=== PATIENT | male | born 1965 | race Caucasian/White ===

== ENCOUNTER 2024-11-23 17:16 | Inpatient (IN) | payer OTHER ==
[2024-11-23 22:13] VITALS: BMI 22.1
[2024-11-24] MEDS ORDERED: Ondansetron PF 4 MG/2 ML Vial IVP PRN (00:30)
[2024-11-24] MEDS ORDERED: Acetaminophen 325 MG TAB PO PRN (00:30)
[2024-11-24] MEDS ORDERED: Acetaminophen 650 MG Suppository PR PRN (00:30)
[2024-11-24] MEDS ORDERED: traMADol HCl 50 MG TAB PO PRN ×2 (00:30)
[2024-11-24] MEDS ORDERED: Ondansetron ODT 4 MG TAB PO PRN (00:30)
[2024-11-24] MEDS ORDERED: Dextrose 50% Abboject 50 ML SYRINGE SLOW IVP PRN (00:35)
[2024-11-24] MEDS ORDERED: Insulin Lispro 100 UNIT/ML 10 ML VIAL SC PRN (00:35)
[2024-11-24] MEDS ORDERED: Glucagon 1 MG/ML KIT IM PRN (00:35)
[2024-11-24] MEDS ORDERED: Dextrose 5% in Water 1,000 ML IV PRN (00:35)
[2024-11-24] MEDS: cefTRIAXone\\ROCEPHIN 2 GM in Sodium Chloride 0.9% 100 ML IVPB SCH (00:58)
[2024-11-24 06:31] LABS: #Basophils 0.05 10x3/uL (0.0-0.2); %Basophils 0.6 % (0.0-1.0); %Eosinophils 5.4 % (0.0-10.0); %Lymphocytes 16.6 % (21.0-51.0); %Monocytes 10.2 % (0.0-10.0); %Neutrophils 66.8 % (42.0-75.0); Hematocrit 43.8 % (42.0-52.0); Hemoglobin 14.6 g/dL (14.0-18.0); Mean Corpuscular HGB CONC 33.3 g/dL (32.0-36.0); Mean Corpuscular Hemoglobin 31.4 pg (27.0-31.0); Mean Corpuscular Volume 94.2 fL (78.0-98.0); Mean Platelet Volume 10.2 fL (7.4-10.4); Platelet Count 165 10x3/uL (130-400); RBC Distribution Width 12.9 % (11.5-14.5); Red Blood Cell (RBC) Count 4.65 mill/uL (4.70-6.10)
[2024-11-24 06:49] LABS: ALT (SGPT) 342 U/L (8-55); AST (SGOT) 342 U/L (5-34); Alkaline Phosphatase 142 U/L (40-110); Anion Gap 14 mmol/L (10-20); BUN (Urea Nitrogen) 13 mg/dL (8.4-25.7); Calc. Creatinine Clearance 119 mL/min (70-130); Calcium 8.8 mg/dL (7.8-10.44); Carbon Dioxide 20 mmol/L (22-29); Chloride 109 mmol/L (98-107); Estimated GFR 106; Globulin 3.7 g/dL (2.4-3.5); Glucose 125 mg/dL (70-105); Potassium 4.3 mmol/L (3.5-5.1); Protein, Total 6.7 g/dL (6.0-8.3); Sodium 139 mmol/L (136-145)
[2024-11-24 06:54] LABS: Vancomycin, Random 4.9 ug/mL (See Comment)
[2024-11-24] MEDS: Empagliflozin 25 MG TAB PO SCH (08:42)
[2024-11-24] MEDS: Lisinopril 20 MG TAB PO SCH (08:42)
[2024-11-24] MEDS: Enoxaparin 40 MG (0.4 mL) SYRINGE SC SCH (08:42)
[2024-11-24] MEDS ORDERED: Vancomycin 1 GM in Sodium Chloride 0.9% 250 ML 250 ML IVPB SCH (09:00)
[2024-11-24] MEDS: Vancomycin (BATCH) 1.5 GM in Premix 1 BAG IVPB SCH (10:02)
[2024-11-24 11:25] LABS: Hep C Index 13.57 S/CO (0-0.79)
[2024-11-24 11:59] LABS: HBsAg Index 0.57 S/CO (0-0.99); Hep A IgM AB NONREACTIVE (NonReactive); Hep A IgM S/CO 1.19 S/CO (0-0.79); Hep B Core IgM Index 0.11 S/CO (0-0.79); Hep B Surf Ag NONREACTIVE S/CO (NonReactive); Hep C IgG Ab Reflex HepC Qnt S/CO (NonReactive); Hepatitis B Core IgM Abs NONREACTIVE S/CO (NonReactive)
[2024-11-24 12:29] LABS: HIV (1/2) Antibody/Antigen NONREACTIVE (NonReactive); HIV 1/2 INDEX 0.12 S/CO (<1.00)
[2024-11-24] MEDS: VANCOMYCIN 1.25 GM/250 ML BAG 1.25 GM in Premix 1 BAG IVPB SCH (15:08)
[2024-11-24 15:58] VITALS: BMI 22.1
[2024-11-25 05:29] LABS: #Basophils 0.06 10x3/uL (0.0-0.2); %Basophils 0.7 % (0.0-1.0); %Eosinophils 5.4 % (0.0-10.0); %Lymphocytes 18.7 % (21.0-51.0); %Monocytes 12.5 % (0.0-10.0); %Neutrophils 62.3 % (42.0-75.0); Hematocrit 45.7 % (42.0-52.0); Hemoglobin 14.9 g/dL (14.0-18.0); Mean Corpuscular HGB CONC 32.6 g/dL (32.0-36.0); Mean Corpuscular Hemoglobin 31.3 pg (27.0-31.0); Platelet Count 155 10x3/uL (130-400); RBC Distribution Width 12.7 % (11.5-14.5); Red Blood Cell (RBC) Count 4.76 mill/uL (4.70-6.10)
[2024-11-25 06:17] LABS: CRP,High Sensitivity (Inhouse) 1.18 mg/dL (< or = 0.5)
[2024-11-25 06:18] LABS: ALT (SGPT) 318 U/L (8-55); AST (SGOT) 313 U/L (5-34); Alkaline Phosphatase 137 U/L (40-110); Anion Gap 15 mmol/L (10-20); BUN (Urea Nitrogen) 16 mg/dL (8.4-25.7); Bilirubin, Total 0.8 mg/dL (0.2-1.2); Calc. Creatinine Clearance 92 mL/min (70-130); Calcium 8.7 mg/dL (7.8-10.44); Carbon Dioxide 20 mmol/L (22-29); Chloride 108 mmol/L (98-107); Estimated GFR 92; Globulin 3.7 g/dL (2.4-3.5); Glucose 121 mg/dL (70-105); Potassium 4.9 mmol/L (3.5-5.1); Protein, Total 6.7 g/dL (6.0-8.3); Sodium 138 mmol/L (136-145)
[2024-11-25 06:21] LABS: Hemoglobin A1c 8.6 % (4.0-6.0)
[2024-11-25 06:24] LABS: Vancomycin, Random 24.7 ug/mL (See Comment)
[2024-11-25 14:32] VITALS: BP 116/77; TEMP 98.6
[2024-11-25] MEDS ORDERED: VANCOMYCIN 1.25 GM/250 ML BAG 1.25 GM in Premix 1 BAG IVPB SCH (21:00)
[2024-11-29 14:37] LABS: A. flavus Negative (Neg:<1:1); A. fumigatus Negative (Neg:<1:1); A. niger Negative (Neg:<1:1); Blastomyces AB Negative (Neg:<1:1)
== END 2024-11-25 15:20 | disposition home or self-care (01) | DRG 195 ==
LOC: T4-A 21:31 → OBSVTOIN 11-24 00:30
PROVIDERS: ADMIT Family Medicine; ATTEND Family Medicine
DX: J18.8 Other pneumonia, unspecified organism (principal); E11.9 Type 2 diabetes mellitus without complications; I10 Essential (primary) hypertension; Z88.0 Allergy status to penicillin; Z88.5 Allergy status to narcotic agent; Z87.891 Personal history of nicotine dependence; Z79.899 Other long term (current) drug therapy; B19.20 Unspecified viral hepatitis C without hepatic coma; R16.1 Splenomegaly, not elsewhere classified
CPT/HCPCS: 36415; 36416; 80053; 80074; 80202; 83036; 84145; 85025; 86141; 86606; 86612; 86635; 87081; 87389; J0696; J1650; J3370

== ENCOUNTER 2024-12-21 09:13 | Outpatient (CLI) | payer OTHER | END 2024-12-21 09:14 | disposition home or self-care (01) | LOC: RAD 09:13 | PROVIDERS: ATTEND Internal Medicine Critical Care Medicine | DX: R06.00 Dyspnea, unspecified (principal); J98.4 Other disorders of lung | CPT/HCPCS: 71046 ==